=== PATIENT | female | born 1945 | race Caucasian/White ===

== ENCOUNTER → 2016-08-09 | Outpatient (REF) | payer MEDICARE ==
[~2016-08-09] MED LIST: /MUPINAS; /PRAV20TA OR; ASPI81TA31 OR; ATEN25TA OR; ATEN25TA PO; BIOT5000 PO; BUPR15TA OR; CALCCHW12 OR; CALCIUM WITH VIT D PD; CEFT500T PO; CIPROFLOXACIN AU; CLON0.5T OR; DEXAMETHASONE AU; HYDR12.55 PO; HYDR25T PO; LISI40TAB PO; LOVA20TA2 PO; MOMETASONE FUROATE AU; MULTIVIT PO; MULTIVITAMIN/MINERAL PO; NICO21DI4 TD; NORT10SO PO; NORT50CA PO; SPIR1CAP INH; TYLE167L PO; VIT D 2000 PO; VITA100037 PO; VITA100072 PO; ZEST20TA4 OR; ZYRT10TA2 PO
== END ==
LOC: M LAB REF 14:27
PROVIDERS: ATTEND Internal Medicine
DX: R19.7 Diarrhea, unspecified (principal)

== ENCOUNTER → 2017-04-20 | Outpatient (REF) | payer MEDICARE ==
[~2017-04-20] MED LIST changes: +HYDR-3363 PO; -HYDR25T PO; -VITA100037 PO; +VITA100067 PO
== END ==
LOC: M LAB REF 17:47
PROVIDERS: ATTEND Ophthalmology
DX: L72.0 Epidermal cyst (principal)

== ENCOUNTER → 2017-10-03 | Outpatient (REF) | payer MEDICARE | LOC: M LAB REF 13:29 | DX: D23.39 Other benign neoplasm of skin of other parts of face (principal) | CPT/HCPCS: 88305 ==

== ENCOUNTER → 2017-12-19 | Outpatient (CLI) | payer MEDICARE ==
[2017-12-19 14:08] LABS: COLLAGEN EPINEPHRINE 97 SECONDS (74-162)
== END ==
LOC: M LAB 13:12
DX: H02.423 Myogenic ptosis of bilateral eyelids (principal)
CPT/HCPCS: 36415

== ENCOUNTER → 2018-10-27 | Outpatient (REF) | payer MEDICARE ==
[~2018-10-27] MED LIST changes: -/MUPINAS; -/PRAV20TA OR; +BACT2OIN12; +LISI40TA52 PO; -LISI40TAB PO; +PRAV1TAB39 OR; +VITA100018 PO; -VITA100072 PO; +ZYRT10CA5 PO; -ZYRT10TA2 PO
== END ==
LOC: M LAB REF 11:04
PROVIDERS: ATTEND Physician Assistant Medical
DX: H60.8X1 Other otitis externa, right ear (principal)

== ENCOUNTER → 2018-12-29 | Outpatient (CLI) | payer MEDICARE ==
[~2018-12-29] MED LIST changes: +GASTROGRAFIN SOLUTION 30ML (Q9963) As Ordered ONE; +ISOVUE-370 76% 100ML VIAL (Q9967) As Ordered ONE
--- NOTE | 2018-12-29 14:47 | REP ---
REASON FOR EXAM: Diarrhea and weight loss. No prior contrast-enhanced examinations for comparison, however, the latest prior examination of 11/06/2013, a noncontrast-enhanced examination was reviewed. CONTRAST: 100 mL Isovue 370. There are chronic lung base changes, status quo. The liver, gallbladder, spleen, pancreas, and adrenal glands are within normal limits. Note is again made of multiple bilateral renal cysts but better imaged on this contrast-enhanced examination and most of which have increased slightly in size compared to the prior exam. No abnormal renal enhancement characteristics are present. The abdominal aorta is within normal limits for the patient's age. There is calcific atherosclerotic change, status quo. There is no periaortic adenopathy. There is no evidence of free fluid or free air in the abdomen. There is no evidence of an intra-abdominal mass or adenopathy. The intra-abdominal bowel loops and their mesenteries are within normal limits. There are a few scattered colonic diverticula. CT PELVIS: There is no evidence of a mass or adenopathy. There is no free fluid or free air. Scattered sigmoid colon diverticula are noted status quo. Bone window technique throughout the exam shows the bones to be demineralized status quo. IMPRESSION: There is no evidence of acute intra-abdominal or intrapelvic disease. There are chronic pancreatic calcifications status quo. There are bilateral renal cysts as described above. There is colonic diverticulosis as described above. Electronically Signed by Deuce Rush DO 12/29/2018 03:21 P
== END ==
LOC: M RAD 11:14
PROVIDERS: ATTEND Surgery
DX: R19.7 Diarrhea, unspecified (principal); R63.4 Abnormal weight loss; K57.90 Diverticulosis of intestine, part unspecified, without perforation or abscess without bleeding; N28.1 Cyst of kidney, acquired; K86.89 Other specified diseases of pancreas
CPT/HCPCS: 74177; Q9963; Q9967

== ENCOUNTER → 2020-02-07 | Outpatient (CLI) | payer MEDICARE ==
[~2020-02-07] MED LIST changes: -GASTROGRAFIN SOLUTION 30ML (Q9963) As Ordered ONE; -ISOVUE-370 76% 100ML VIAL (Q9967) As Ordered ONE
--- NOTE | 2020-03-04 13:47 | REP ---
CHEST X-RAY CLINICAL: COPD. Persistent cough. TECHNIQUE: PA and lateral. FINDINGS: Mediastinum and cardiac silhouette are normal. Lung rebolledo demonstrate chronic appearing interstitial changes. No consolidation, effusion, or pneumothorax. Skeletal structures are intact. IMPRESSION: No acute cardiopulmonary process or focal consolidation. MTDD
== END ==
LOC: M WUC 11:21
PROVIDERS: ATTEND Physician Assistant
DX: J44.1 Chronic obstructive pulmonary disease with (acute) exacerbation (principal)

== ENCOUNTER 2020-09-03 19:33 | Observation (INO) | payer MEDICARE ==
[~2020-09-03] VITALS: Ht 175.3 cm; Wt 66.6 kg
--- NOTE | 2020-09-03 20:28 | REPVR ---
PROCEDURE INFORMATION: Exam: XR Chest Exam date and time: 09/03/2020 8:08 PM Age: 75 years old Clinical indication: Other: Chest pain TECHNIQUE: Imaging protocol: XR of the chest Views: 1 view. COMPARISON: CR CHEST 2 VIEW 02/07/2020 11:32 AM FINDINGS: Lungs: Well inflated lungs with flattened diaphragmatic contours and increased retrosternal airspace consistent with COPD. Increased interstitial lung markings in both upper lung zones extending to the apices consistent with fibrotic change. No acute pulmonary infiltrates. Pleural spaces: Unremarkable. No pleural effusion. No pneumothorax. Heart/Mediastinum: Unremarkable. No cardiomegaly. Bones/joints: Osteoporosis. IMPRESSION: 1. COPD. 2. Increased interstitial lung markings in both upper lung zones extending to the apices consistent with fibrotic change. 3. No acute findings. Electronically signed by: Alex Herrera On 09/03/2020 20:28:06 PM
[2020-09-03 20:48] LABS: BASO % 0.5 % (0.0-1.0); EOS # 0.1 10^3/uL (0.0-0.5); EOS % 1.7 % (0.0-3.0); HEMATOCRIT 40.6 % (36.0-47.0); HEMOGLOBIN 13.2 g/dl (12.0-15.5); LYMPH # 2.6 10^3/uL (1.5-5.0); LYMPH % 30.5 % (24.0-44.0); MEAN CORPUSCULAR HEMOGLOBIN 29.5 pg (27.0-33.0); MEAN CORPUSCULAR HGB CONC 32.5 g/dl (32.0-36.5); MEAN CORPUSCULAR VOLUME 90.8 fl (80.0-96.0); MONO # 0.7 10^3/uL (0.0-0.8); MONO % 8.6 % (2.0-8.0); NEUTROPHILS # 4.9 10^3/uL (1.5-8.5); NEUTROPHILS % 58.3 % (36.0-66.0); PLATELET COUNT, AUTOMATED 257 10^3/uL (150-450); RED BLOOD COUNT 4.47 10^6/uL (4.00-5.40); WHITE BLOOD COUNT 8.5 10^3/uL (4.0-10.0)
--- NOTE | 2020-09-03 21:04 | ECGEPIP ---
[facility] - ED Test Date: 2020-09-03 Pat Name: CHANDLER PEREZ Department: Room: - Gender: Female Internet Webmaster: YESENIA : 1945 Requested By: Nicole De León Order Number: [id number] Reading MD: Oleg Amaro Measurements Intervals [place] Rate: 86 P: 55 KS: 186 QRS: 63 QRSD: 94 T: 43 QT: 392 QTc: 469 Interpretive Statements Normal sinus rhythm Possible Left atrial enlargement Left ventricular hypertrophy with repolarization abnormality ( Sokolow-Landon ) SIMILAR TO 08/06/14 Electronically Signed on 09-03-2020 21:04:11 EDT by Oleg Amaro
[2020-09-03 21:25] LABS: ALBUMIN 3.9 GM/DL (3.2-5.2); ALT/SGPT 17 U/L (12-78); BILIRUBIN,DIRECT 0.1 MG/DL (0.0-0.2); BILIRUBIN,TOTAL 0.2 MG/DL (0.2-1.0); BLOOD UREA NITROGEN 20 MG/DL (7-18); CALCIUM LEVEL 9.7 MG/DL (8.8-10.2); CARBON DIOXIDE LEVEL 32 MEQ/L (21-32); CHLORIDE LEVEL 104 MEQ/L (98-107); CK-MB VALUE MASS 1.4 NG/ML (<3.6); CPK CREATINE PHOSPHOKINASE 69 U/L (26-192); CREATININE FOR GFR 1.21 MG/DL (0.55-1.30); GLOMERULAR FILTRATION RATE 46.3 (>39); GLUCOSE, FASTING 119 MG/DL (70-100); MB/CK RELATIVE INDEX 2.03 (< OR =4); POTASSIUM SERUM 3.6 MEQ/L (3.5-5.1); SODIUM LEVEL 142 MEQ/L (136-145); THYROID STIMULATING HORMONE 0.966 uIU/ML (0.358-3.740); TROPONIN I < 0.02 NG/ML (< 0.10)
[2020-09-03] MEDS: LABETALOL 100MG/20ML VIAL IV PRN ×2 (21:46→22:14)
[2020-09-03] MEDS ORDERED: ZINC1TAB2 PO (22:04)
[2020-09-03] MEDS ORDERED: LISI20TA33 PO (22:04)
[2020-09-03] MEDS ORDERED: ATEN50TA2 PO (22:04)
[2020-09-03] MEDS ORDERED: KP F1200 PO (22:04)
[2020-09-03] MEDS ORDERED: TURM500C PO (22:04)
[2020-09-03] MEDS ORDERED: VALSARTAN 80 MG TAB (DIOVAN) PO ONE (23:25)
[2020-09-04] VITALS (16 sets, daily range): BP systolic 119–185; BP diastolic 57–78
[2020-09-04] MEDS ORDERED: **hydrALAZINE HCL** 25 MG TAB PO ONE (01:00)
[2020-09-04] MEDS ORDERED: hydrALAZINE 20MG/ML 1ML VIAL (J0360 PER 20MG) IV ONE (01:55)
[2020-09-04] MEDS ORDERED: VITMTA PO (02:23)
[2020-09-04] MEDS ORDERED: RA T500C2 PO (02:23)
[2020-09-04] MEDS ORDERED: FISH1000 PO (02:23)
[2020-09-04] MEDS ORDERED: ZINC50TA26 PO (02:23)
[2020-09-04] MEDS ORDERED: D31000TA2 PO (02:23)
[2020-09-04] MEDS ORDERED: CALCTAB50 PO (02:23)
[2020-09-04] MEDS ORDERED: MOM 30ML SUSPENSION UDC PO PRN (03:05)
[2020-09-04] MEDS ORDERED: MAALOX 30 ML SUSP *UDC PO PRN (03:05)
[2020-09-04] MEDS: NORTRIPTYLINE 25 MG CAP PO SCH ×2 (03:15→20:58)
--- NOTE | 2020-09-04 03:36 | HPEPDOC ---
[facility] Medical History & Physical Date of Admission Sep 04, 2020 Date of Service: Sep 04, 2020 History and Physical CHIEF COMPLAINT: dizziness HISTORY OF PRESENT ILLNESS: 75 yo F with a hx of HTN, and migraines presented to ER from urgent care, after he systolic blood pressure was found to be > 220 mmHg. Patient has been feeling dizzy for the past 2 days, without chest pain, palpitations, seizures, blurred vision. She was given labetalol IV in the ER without improvement. Dr. Bradford was called, recommended valsartan and hydralazine. Patients SBP remains > 200 at time of exam. Will be admitted to ICU with a labetalol drip to reduce BP by 20%. 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 REVIEW OF SYSTEMS: 10 point ROS was conducted, relevant findings are in HPI HOME MEDICATIONS: Please see below. PHYSICAL EXAMINATION: VITAL SIGNS: please see below General: NAD, comfortable HEENT: PERRLA, EOMI, sclerae clear Neck: supple, normal ROM, no JVD Respiratory: lungs CTAB, no wheeze, no rales, no crackles CVS: RRR, normal S1, S2, no murmurs Abdo: soft, no masses, no hepatosplenomegaly, BS+, no rebound tenderness Extremities: no edema, pulses 2+ MSK: no joint deformities, normal ROM Neuro: no focal neuro deficits, moving all 4 extremities, CN2-12 intact. Strength 5/5 in all 4 extremities. No nystagmus. Psych: calm, cooperative, AAO x 3 LABORATORY DATA: See below. IMAGING: CXR (09/03/20) 1. COPD. 2. Increased interstitial lung markings in both upper lung zones extending to the apices consistent with fibrotic change. 3. No acute findings. MICROBIOLOGY: Please see below. ASSESSMENT: 75 yo F with a hx of HTN, and migraines presented to ER from urgent care, after he systolic blood pressure was found to be > 220 mmHg. Will be admitted to ICU with labetalol drip to achieve BP control. . PLAN: HTN urgency - SBP > 220 - refractory to IV labetalol pushes, ARB and hydralazine - admit to ICU - Labetalol drip 0.5 mg/min - goal SBP 180 mmHg - home meds: atenolol 50 mg daily and lisinopril 20 mg daily; resumed to start once off drip - check serum metanephrines, catecholamines, renin/aldosterone ratio - check renal US with dopplers - check 2D echo Migraines - resume nortriptyline COPD: - stable, does not take inhalers - albuterol DVT ppx: lovenox, SCDs. Dispo: pending clinical improvement. Vital Signs Vital Signs Date Time Temp Pulse Resp B/P (MAP) Pulse Ox O2 Delivery O2 Flow Rate FiO2 09/04/20 02:30 82 212/90 (130) 97 09/04/20 01:17 18 Room Air 09/03/20 19:36 98.4 Laboratory Data Labs 24H Laboratory Tests 2 09/03/20 20:24: Immature Granulocyte % (Auto) 0.4, Neutrophils (%) (Auto) 58.3, Lymphocytes (%) (Auto) 30.5, Monocytes (%) (Auto) 8.6H, Eosinophils (%) (Auto) 1.7, Basophils (%) (Auto) 0.5, Neutrophils # (Auto) 4.9, Lymphocytes # (Auto) 2.6, Monocytes # (Auto) 0.7, Eosinophils # (Auto) 0.1, Basophils # (Auto) 0.0, Nucleated Red Blood Cells % (auto) 0.0, Anion Gap 6L, Glomerular Filtration Rate 46.3, Calcium Level 9.7, Total Bilirubin 0.2, Direct Bilirubin 0.1, Aspartate Amino Transf (AST/SGOT) 20, Alanine Aminotransferase (ALT/SGPT) 17, Alkaline Phosphatase 113, Total Creatine Kinase 69, Creatine Kinase MB 1.4, Creatine Kinase MB Relative Index 2.03, Troponin I < 0.02, Total Protein 7.0, Albumin 3.9, Albumin/Globulin Ratio 1.3, Thyroid Stimulating Hormone (TSH) 0.966 09/03/20 20:35: Urine Color STRAW, Urine Appearance CLEAR, Urine pH 8.0, Urine Specific [place] 1.008, Urine Protein 2+H, Urine Glucose (UA) NEGATIVE, Urine Ketones NEGATIVE, Urine Blood 2+H, Urine Nitrite NEGATIVE, Urine Bilirubin NEGATIVE, Urine Urobilinogen 0.2, Urine Leukocyte Esterase NEGATIVE, Urine WBC (Auto) 2, Urine RBC (Auto) 22H, Urine Hyaline Casts (Auto) 0, Urine Bacteria (Auto) NEGATIVE, U rine Squamous Epithelial Cells 0, Urine Mucus (Auto) SMALL, Urine Sperm (Auto) CBC/BMP Laboratory Tests 09/03/20 20:24 Microbiology Microbiology 09/04/20 Respiratory Virus Panel (PCR) ([facility]), Received Pending Home Medications Scheduled Atenolol (Atenolol) 50 Mg Tablet, 50 MG PO DAILY Biotin (Biotin) 5,000 Mcg Cap, 10,000 MCG PO DAILY Calcium Carbonate/Vitamin D3 (Calcium 600-Vit D3 200 Tablet) 1 Each Tablet, 1 TAB PO DAILY Cholecalciferol (Vitamin D3) (Vitamin D3) 1,000 Unit Tablet, 2,000 UNITS PO DAILY Lisinopril (Lisinopril) 20 Mg Tablet, 20 MG PO DAILY Lovastatin (Lovastatin) 20 Mg Tab, 20 MG PO DAILY Multivitamins (Thera M Plus Tablet) 1 Each Tablet, 1 TAB PO DAILY Nortriptyline HCl (Nortriptyline HCl) 50 Mg Cap, 50 MG PO QHS [place]-3 Fatty Acids/Fish Oil (Fish Oil 1,000 mg Capsule) 1 Each Capsule, 1,000 MG PO DAILY Turmeric Root Extract (Turmeric) 500 Mg Capsule, 500 MG PO DAILY Zinc Gluconate (Zinc) 50 Mg Tablet, 50 MG PO DAILY Allergies Coded Allergies: codeine (Unverified Allergy, Unknown, 09/03/20) morphine (Unverified Allergy, Unknown, 09/03/20) A-FIB/CHADSVASC A-FIB History Current/History of A-Fib/PAF?: No Current PO Anticoag Therapy: No CORINE MCDOWELL MD Sep 04, 2020 03:36
[2020-09-04] MEDS ORDERED: LABETALOL HCL 200 MG in D5W 160 ML IV SCH (04:00)
[2020-09-04 07:50] LABS: BASO % 0.5 % (0.0-1.0); EOS # 0.1 10^3/uL (0.0-0.5); EOS % 1.4 % (0.0-3.0); HEMATOCRIT 35.5 % (36.0-47.0); HEMOGLOBIN 11.7 g/dl (12.0-15.5); LYMPH % 24.4 % (24.0-44.0); MEAN CORPUSCULAR HEMOGLOBIN 29.6 pg (27.0-33.0); MEAN CORPUSCULAR VOLUME 89.9 fl (80.0-96.0); MONO # 0.6 10^3/uL (0.0-0.8); MONO % 7.8 % (2.0-8.0); NEUTROPHILS # 5.3 10^3/uL (1.5-8.5); NEUTROPHILS % 65.8 % (36.0-66.0); PLATELET COUNT, AUTOMATED 238 10^3/uL (150-450); RED BLOOD COUNT 3.95 10^6/uL (4.00-5.40); WHITE BLOOD COUNT 8.1 10^3/uL (4.0-10.0)
[2020-09-04 08:13] LABS: ALBUMIN 3.4 GM/DL (3.2-5.2); BILIRUBIN,TOTAL 0.3 MG/DL (0.2-1.0); CALCIUM LEVEL 8.8 MG/DL (8.8-10.2); CREATININE FOR GFR 1.11 MG/DL (0.55-1.30); GLOMERULAR FILTRATION RATE 51.2 (>39); MAGNESIUM LEVEL 1.8 MG/DL (1.8-2.4); POTASSIUM SERUM 3.6 MEQ/L (3.5-5.1)
--- NOTE | 2020-09-04 08:51 | REP ---
INDICATION: hypertensive urgency, r/o renal artery stenosis COMPARISON: None TECHNIQUE: Real time riley scale ultrasound examination using curved array transducer followed by color Doppler evaluation of the renal vasculature. FINDINGS: The kidneys are relatively normal in reniform shape with increased central sinus fat and multiple scattered cysts (largest of which noted below). No hydronephrosis. Right kidney measures 9.6 x 4.7 x 5.0 cm with the largest midpole cortical cyst measuring 2.3 cm diameter. Left kidney measures 10.1 x 4.5 x 5.1 cm with 3.1 cm lower pole and 2.9 cm cortical midpole cyst. Bladder is unremarkable. Peak aortic velocity: 56.0 centimeters/second RIGHT KIDNEY Renal arterial velocity: 87.6 centimeters/second Renal-aortic ratio: 1.6 Intrarenal resistive indices: 0.80-0.84 Intrarenal acceleration times: 0.022-0.025 LEFT KIDNEY Renal arterial velocity: 61 centimeters/second Renal-aortic ratio: 1.1 Intrarenal resistive indices: 0.78-0.83 Intrarenal acceleration times: 0.020-0.022 IMPRESSION: 1. Kidneys demonstrate chronic age-related changes and multiple bilateral simple and complex cysts. 2. Doppler interegation without sonographic evidence for renal arterial stenosis. <Electronically signed by Jewel Sanchez > 09/04/20 0844
[2020-09-04] MEDS: ENOXAPARIN 40MG/0.4ML SYRINGE (J1650 PER 10MG) SC SCH (09:17)
[2020-09-04] MEDS: ACETAMINOPHEN TAB 650MG DOSE (2X325MG) PO PRN ×3 (09:18→18:35)
[2020-09-04] MEDS: atenoloL 50 MG TAB PO SCH (09:19)
[2020-09-04] MEDS: SIMVASTATIN 20 MG TAB PO SCH (09:20)
[2020-09-04] MEDS: VITAMIN D 1,000 INTERNATIONAL UNITS TABLET PO SCH (09:20)
[2020-09-04] MEDS: MULTIVITAMINS/MINERALS THERAP 1 TAB PO SCH (09:20)
[2020-09-04] MEDS: CALCIUM/VITAMIN D 500 MG TAB PO SCH (09:20)
[2020-09-04] MEDS: DOCUSATE SODIUM 100MG CAPSULE PO SCH ×2 (09:20→20:26)
[2020-09-04] MEDS ORDERED: PREVNAR 13 VACCINE SYRINGE IM SCH (14:35)
--- NOTE | 2020-09-04 16:36 | IPNPDOC ---
Text Note Date of Service The patient was seen on 09/04/20. NOTE Subjective: Patient stated that she feels better today. Her blood pressure under control. Labetalol drip was stopped Objective: GENERAL APPEARANCE: NAD HEENT: no scleral icterus, no JVD, EOMI CARDIOVASCULAR: S1S2 LUNGS: CTA ABDOMEN: soft & not tender w palpitation MUSCULOSKELETAL: no cyanosis, no swelling INTEGUMENT: no generalized pallor NEUROLOGICAL: cranial nerve function from 2-12 intact intact, follows commands, speech not dysarthric Assessment and plan Patient is 75 years old female with past medical history of hypertension, migraines presented to the hospital with hypertensive emergency Hypertensive emergency Patient developed refractory blood pressure to IRP and hydralazine Patient was placed on the labetalol ggt with positive effect In the morning pressure was stabilized I increased the home dose of lisinopril to 40 mg Kidney ultrasound showed Kidneys demonstrate chronic age-related changes and multiple bilateral simple and complex cysts. 2. Doppler interegation without sonographic evidence for renal arterial stenosis Await echo Migraines Continue nortriptyline COPD Not in acute exacerbation Continue home inhalers Smoking abuse Counseling VS,Adams, I+O VS, Adams, I+O Laboratory Tests 09/03/20 20:24 09/04/20 07:29 Vital Signs Date Time Temp Pulse Resp B/P (MAP) Pulse Ox O2 Delivery O2 Flow Rate FiO2 09/04/20 12:14 68 148/66 (93) 09/04/20 12:00 98.5 18 97 Room Air I&O- Last 24 Hours up to 6 AM 09/04/20 06:00 Intake Total 30 ml Output Total 0 ml Balance 30 ml LUIS ALBERTO DE LEON DO Sep 04, 2020 16:36
[2020-09-05] VITALS: BP 150/67
[2020-09-05 04:00] VITALS: BP 144/69
[2020-09-05 08:00] VITALS: BP 132/62
[2020-09-05] MEDS: VITAMIN D 1,000 INTERNATIONAL UNITS TABLET PO SCH (09:14)
[2020-09-05 09:15] VITALS: BP 132/62
[2020-09-05] MEDS: CALCIUM/VITAMIN D 500 MG TAB PO SCH (09:15)
[2020-09-05] MEDS: SIMVASTATIN 20 MG TAB PO SCH (09:15)
[2020-09-05] MEDS: atenoloL 50 MG TAB PO SCH (09:15)
[2020-09-05] MEDS: ENOXAPARIN 40MG/0.4ML SYRINGE (J1650 PER 10MG) SC SCH (09:16)
[2020-09-05] MEDS: MULTIVITAMINS/MINERALS THERAP 1 TAB PO SCH (09:16)
[2020-09-05] MEDS: DOCUSATE SODIUM 100MG CAPSULE PO SCH (09:16)
[2020-09-05] MEDS ORDERED: SLF 3 ML SYR IV PRN (11:00)
[2020-09-05] MEDS ORDERED: LISI40TA4 PO (11:14)
[2020-09-05] MEDS ORDERED: AMLO1TAB25 PO (11:14)
[2020-09-05] MEDS ORDERED: ATOR1TAB21 PO (11:14)
[2020-09-05] MEDS ORDERED: DOK1CAP7 PO (11:14)
[2020-09-05 12:00] VITALS: BP 148/82
[2020-09-05] MEDS ORDERED: SLF 3 ML SYR IV SCH (14:00)
--- NOTE | 2020-09-05 16:56 | DS.PDOC ---
Discharge Summary General Date of Admission Sep 03, 2020 at 19:34 Date of Discharge 09/05/20 Discharge Summary PROCEDURES PERFORMED DURING STAY: [None]. ADMITTING DIAGNOSES: Hypertensive emergency/hypertension Migraines COPD Smoking abuse DISCHARGE DIAGNOSES: Hypertensive emergency/hypertension Migraines COPD Smoking abuse COMPLICATIONS/CHIEF COMPLAINT: Hypertensive Urgency. HISTORY OF PRESENT ILLNESS: 75 yo F with a hx of HTN, and migraines presented to ER from urgent care, after he systolic blood pressure was found to be > 220 mmHg. Patient has been feeling dizzy for the past 2 days, without chest pain, palpitations, seizures, blurred vision. She was given labetalol IV in the ER without improvement. Dr. Bradford was called, recommended valsartan and hydralazine. Patients SBP remains > 200 at time of exam HOSPITAL COURSE: During the hospital stay the following issues addressed Hypertensive emergency Patient developed refractory blood pressure to IRB and hydralazine Patient was placed on the labetalol ggt with positive effect after that blood pressure was stabilized I increased the home dose of lisinopril to 40 mg Kidney ultrasound showed Kidneys demonstrate chronic age-related changes and multiple bilateral simple and complex cysts. 2. Doppler interegation without sonographic evidence for renal arterial stenosis Await echo report Migraines Continue nortriptyline COPD Not in acute exacerbation Continue home inhalers Smoking abuse Counseling DISCHARGE MEDICATIONS: Please see below. ALLERGIES: Please see below. PHYSICAL EXAMINATION ON DISCHARGE: VITAL SIGNS: Please see below. GENERAL APPEARANCE: NAD HEENT: no scleral icterus, no JVD, EOMI CARDIOVASCULAR: S1S2 LUNGS: CTA ABDOMEN: soft & not tender w palpitation MUSCULOSKELETAL: no cyanosis, no swelling INTEGUMENT: no generalized pallor NEUROLOGICAL: cranial nerve function from 2-12 intact intact, follows commands, speech not dysarthric LABORATORY DATA: Please see below. IMAGING: See above PROGNOSIS: Fair ACTIVITY: [As tolerated]. DIET: Cardiac DISPOSITION: 01 Home, Self-Care. ITEMS TO FOLLOWUP ON ON OUTPATIENT: Follow-up with special education professor in 3-5 days and PCP DISCHARGE CONDITION: [Stable]. TIME SPENT ON DISCHARGE: 30minutes. Vital Signs/I&Os Vital Signs Date Time Temp Pulse Resp B/P (MAP) Pulse Ox O2 Delivery O2 Flow Rate FiO2 09/05/20 12:00 97.8 75 18 148/82 (104) 96 Room Air I&O- Last 24 Hours up to 6 AM 09/05/20 06:00 Intake Total 480 ml Output Total 100 ml Balance 380 ml Microbiology Microbiology 09/04/20 Respiratory Virus Panel (PCR) ([facility]) - Final, Complete Discharge Medications Scheduled Amlodipine Besylate (Amlodipine Besylate) 10 Mg Tablet, 10 MG PO DAILY Atenolol (Atenolol) 50 Mg Tablet, 50 MG PO DAILY, (Reported) Atorvastatin Calcium (Atorvastatin Calcium) 20 Mg Tablet, 20 MG PO DAILY Biotin (Biotin) 5,000 Mcg Cap, 10,000 MCG PO DAILY, (Reported) Calcium Carbonate/Vitamin D3 (Calcium 600-Vit D3 200 Tablet) 1 Each Tablet, 1 TAB PO DAILY, (Reported) Cholecalciferol (Vitamin D3) (Vitamin D3) 1,000 Unit Tablet, 2,000 UNITS PO D AILY, (Reported) Lisinopril (Lisinopril) 40 Mg Tablet, 1 TAB PO DAILY Multivitamins (Thera M Plus Tablet) 1 Each Tablet, 1 TAB PO DAILY, (Reported) Nortriptyline HCl (Nortriptyline HCl) 50 Mg Cap, 50 MG PO QHS, (Reported) [place]-3 Fatty Acids/Fish Oil (Fish Oil 1,000 mg Capsule) 1 Each Capsule, 1,000 MG PO DAILY, (Reported) Turmeric Root Extract (Turmeric) 500 Mg Capsule, 500 MG PO DAILY, (Reported) Zinc Gluconate (Zinc) 50 Mg Tablet, 50 MG PO DAILY, (Reported) Scheduled PRN Docusate Sodium (Dok) 100 Mg Capsule, 100 MG PO BID PRN for constipation Allergies Coded Allergies: codeine (Unverified Allergy, Unknown, 09/03/20) morphine (Unverified Allergy, Unknown, 09/03/20) LUIS ALBERTO DE LEON DO Sep 05, 2020 16:56
== END 2020-09-05 14:15 | disposition home or self-care (01) ==
LOC: M ED 19:33 → M ED INP 19:34 → M ICU 09-04 05:10 → M PCU 09-04 18:36
PROVIDERS: ADMIT Family Medicine; ATTEND Family Medicine
DX: I16.0 Hypertensive urgency (principal); I10 Essential (primary) hypertension; G43.909 Migraine, unspecified, not intractable, without status migrainosus; J44.9 Chronic obstructive pulmonary disease, unspecified; F17.218 Nicotine dependence, cigarettes, with other nicotine-induced disorders; Z79.899 Other long term (current) drug therapy; Z88.5 Allergy status to narcotic agent
CPT/HCPCS: 36415; 71045; 76775; 80048; 80053; 80076; 81001; 82088; 82383; 82550; 82553; 83735; 83835; 84244; 84443; 84484; 84585; 85025; 87641; 87798; 93005; 93041; 93975; 94760; 96372; 96374; 96375; 96376; 99285; G0378; J0360; J1650

== ENCOUNTER → 2020-09-15 | Outpatient (CLI) | payer MEDICARE ==
[~2020-09-15] MED LIST changes: +AMLO1TAB25 PO; +ATEN50TA2 PO; +ATOR1TAB21 PO; +CALCTAB50 PO; +D31000TA2 PO; +DOK1CAP7 PO; +FISH1000 PO; +KP F1200 PO; +LISI20TA33 PO; +LISI40TA4 PO; +RA T500C2 PO; +TURM500C PO; +VITMTA PO; +ZINC1TAB2 PO; +ZINC50TA26 PO
--- NOTE | 2020-09-15 16:24 | REPMRS ---
Patient History The patient states she has not had a clinical breast exam in over a year. Patient is postmenopausal. No known family history of cancer. Benign radio exam breast specimen of the right breast, November 13, 2014. Benign stereotatic loc for ea lesion of the right breast, November 13, 2014. 3D TOMOSYNTHESIS WAS PERFORMED. [facility] lifetime risk for breast cancer is 2.8%. Volpara breast density b. Digital Woman Screen Mammo: September 15, 2020 - Exam #: [id number] Bilateral CC and MLO view(s) were taken. Technologist: Tere Bourgeois, Technologist Prior study comparison: October 23, 2018, left breast diagnostic unilateral mammo, performed at [facility]. April 04, 2018, bilateral digital mammo screening bilat, performed at [facility]. FINDINGS: There are scattered fibroglandular densities. There has been no change in the appearance of the mammogram from the prior studies. There is a mild amount of residual fibroglandular tissue which is fairly symmetric. There is no interval development of dominant mass, architectural distortion, or clustered microcalcification suggestive of malignancy. Assessment: BI-RADS/ACR category 1 mammogram. Negative Mammogram. Recommendation Routine screening mammogram in 1 year (for women over age 40). This mammogram was interpreted with the aid of an FDA-approved computer-aided dectection system. Electronically Signed By: Tyson Bazzi MD 09/15/20 0326
--- NOTE | 2020-09-15 16:38 | DEXAMM ---
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 COMPARISON: 09/12/2017 and 08/13/2013. TECHNIQUE: Bone density was measured using dual-energy x-ray absorptiometry (DEXA). FINDINGS: AP SPINE L1-L4 BMD 0.954 g/cm2 Young Adult T-Score -1.9 Age Matched Z-Score -0.2. LT FEMUR, TOTAL BMD 0.815 g/cm2 Young Adult T-Score -1.5 Age Matched Z-Score 0.2. LT NECK BMD 0.827 g/cm2 Young Adult T-Score -1.5 Age Matched Z-Score 0.4. RT FEMUR, TOTAL BMD 0.777 g/cm2 Young Adult T-Score -1.8 Age Matched Z-Score -0.2. RT NECK BMD 0.792 g/cm2 Young Adult T-Score -1.8 Age Matched Z-Score 0.1. IMPRESSION: There is low bone density of the spine. There is low bone density of the left hip. There is low bone density of the right hip. The density of the spine has decreased 4.6% since the initial exam on 08/13/2013. The density of the spine decreased 4.6% since most recent exam on 09/12/2017. The density of the left hip has decreased 9.9% since initial exam on 08/13/2013. The density of the left hip has decreased 0.9% since most recent exam on 09/12/2017. The density of the right hip has decreased 14.0% since the initial exam on 08/13/2013. The density of the right hip has decreased 1.8% since the most recent exam on 09/12/2017. FOLLOW-UP: Recommendation for the next bone density exam: 2 years. <Electronically signed by Tyson Bazzi > 09/15/20 [id number]
== END ==
LOC: M WHC 14:32
PROVIDERS: ATTEND Internal Medicine
DX: Z12.31 Encounter for screening mammogram for malignant neoplasm of breast (principal); M89.29 Other disorders of bone development and growth, multiple sites; M81.0 Age-related osteoporosis without current pathological fracture

== ENCOUNTER → 2020-11-06 | Outpatient (CLI) | payer MEDICARE ==
--- NOTE | 2020-11-06 12:40 | REP ---
INDICATION: STENOSIS COMPARISON: None. TECHNIQUE: Bazzi scale and color Doppler evaluation using linear high frequency transducer Findings: FINDINGS: Two-dimensional bazzi scale and color images demonstrate moderate amount of bilateral mixed atheromatous plaquing with laminar flow and no appreciable narrowing. Color Doppler interrogation demonstrates normal arterial wave patterns and velocities with no significant spectral broadening. Normal flow direction is appreciated in the bilateral vertebral arteries. ICA peak systolic velocity: Right 124 cm/s; Left 162 cm/s ICA diastolic velocity: Right 30.2 cm/s; Left 32.1 cm/s ECA peak systolic velocity: Right 133 cm/s; Left 164 cm/s CCA peak systolic velocity: Right 122 cm/s; Left 98.8 cm/s ICA/CCA ratio: Right 1.02 cm/s; Left 1.64 cm/s IMPRESSION: 1. Elevated velocity to the left carotid artery possibly reflecting area of stenosis in the 50-69% range <Electronically signed by Jewel Sanchez > 11/06/20 [id number]
== END ==
LOC: M RAD 11:55
PROVIDERS: ATTEND Internal Medicine Cardiovascular Disease
DX: R09.89 Other specified symptoms and signs involving the circulatory and respiratory systems (principal); I65.29 Occlusion and stenosis of unspecified carotid artery

== ENCOUNTER → 2020-11-10 | Outpatient (CLI) | payer MEDICARE ==
[2020-11-10 18:12] LABS: ALBUMIN 3.7 GM/DL (3.2-5.2); CALCIUM LEVEL 9.8 MG/DL (8.8-10.2); CREATININE FOR GFR 1.7 MG/DL (0.55-1.30); GLOMERULAR FILTRATION RATE 31.3 (>39); PHOSPHORUS LEVEL 3.4 MG/DL (2.5-4.9); POTASSIUM SERUM 4.4 MEQ/L (3.5-5.1)
== END ==
LOC: M WUC 10:25
PROVIDERS: ATTEND Internal Medicine Cardiovascular Disease
DX: I11.9 Hypertensive heart disease without heart failure (principal)

== ENCOUNTER → 2021-01-19 | Outpatient (REF) | payer MEDICARE ==
[~2021-01-19] MED LIST changes: +DOK1CAP4 PO; -DOK1CAP7 PO
[2021-01-19 17:10] LABS: ALBUMIN 3.6 GM/DL (3.2-5.2); CALCIUM LEVEL 8.8 MG/DL (8.8-10.2); CREATININE FOR GFR 1.31 MG/DL (0.55-1.30); GLOMERULAR FILTRATION RATE 42.3 (>39); PHOSPHORUS LEVEL 3.7 MG/DL (2.5-4.9); POTASSIUM SERUM 3.9 MEQ/L (3.5-5.1)
== END ==
LOC: M PLALAB 15:33
PROVIDERS: ATTEND Physician Assistant
DX: I11.9 Hypertensive heart disease without heart failure (principal)

== ENCOUNTER → 2021-04-06 | Outpatient (CLI) | payer MEDICARE ==
--- NOTE | 2021-04-06 11:58 | REP ---
INDICATION: RENAL CYST. COMPARISON: 09/04/2020 which showed multiple cysts and likely age-related changes. Prior CT 12/29/2018 showed multiple renal cysts. TECHNIQUE: Real-time sonographic evaluation of the kidneys with Doppler FINDINGS: Multiple ultrasonographic images of the right kidney show the right kidney to measure 9.3 x 6.2 x 4.9 cm. The renal cortical echotexture is diffusely increased. There are no solid masses. There are multiple cysts status quo. There is suboptimal corticomedullary differentiation. There is no hydronephrosis. There are no perinephric fluid collections. Multiple ultrasonographic images of the left kidney show the left kidney to measure 10.5 x 5.3 x 4.9 cm. The renal cortical echotexture is diffusely increased. There are no solid masses. Are multiple cysts status quo. There is suboptimal corticomedullary differentiation. There is no hydronephrosis. There are no perinephric fluid collections. IMPRESSION: No significant change from the prior exam. There are multiple cysts. There is evidence of age-related change. Medical renal disease cannot be ruled. <Electronically signed by Deuce Rush > 04/06/21 [id number]
== END ==
LOC: M RAD 11:10
PROVIDERS: ATTEND Internal Medicine
DX: N28.1 Cyst of kidney, acquired (principal)

== ENCOUNTER → 2021-08-25 | Outpatient (REF) | payer MEDICARE ==
[~2021-08-25] MED LIST changes: -D31000TA2 PO; +VITA100093 PO
== END ==
LOC: M LAB REF 16:19
PROVIDERS: ATTEND Internal Medicine
DX: N18.30 Chronic kidney disease, stage 3 unspecified (principal)

== ENCOUNTER → 2021-10-07 | Outpatient (CLI) | payer MEDICARE | LOC: M WHC 14:08 | PROVIDERS: ATTEND Internal Medicine | DX: Z12.31 Encounter for screening mammogram for malignant neoplasm of breast (principal) ==

== ENCOUNTER 2021-11-07 22:56 | Emergency (ER) | payer MEDICARE ==
[~2021-11-07] VITALS: Ht 177.8 cm; Wt 63.6 kg
[2021-11-08] MEDS ORDERED: hydrALAZINE 20MG/ML 1ML VIAL (J0360 PER 20MG) IV STA (00:38)
[2021-11-08] MEDS ORDERED: **hydrALAZINE HCL** 25 MG TAB PO ONE (01:35)
[2021-11-08 01:49] VITALS: BP 220/60
[2021-11-08 02:28] VITALS: BP 183/76
== END 2021-11-08 03:10 | disposition left against medical advice (07) ==
LOC: M ED 22:56
DX: I16.0 Hypertensive urgency (principal); Z04.3 Encounter for examination and observation following other accident; W01.0XXA Fall on same level from slipping, tripping and stumbling without subsequent striking against object, initial encounter; Y92.410 Unspecified street and highway as the place of occurrence of the external cause; Y93.9 Activity, unspecified; Y99.9 Unspecified external cause status; Z53.9 Procedure and treatment not carried out, unspecified reason; Z79.899 Other long term (current) drug therapy

== ENCOUNTER → 2021-11-16 | Outpatient (CLI) | payer MEDICARE | LOC: M WUC 15:20 | PROVIDERS: ATTEND Physician Assistant | DX: M79.605 Pain in left leg (principal) ==

== ENCOUNTER → 2022-09-14 | Outpatient (CLI) | payer MEDICARE | LOC: M RAD 12:06 | PROVIDERS: ATTEND Internal Medicine | DX: Z87.891 Personal history of nicotine dependence (principal) ==

== ENCOUNTER → 2022-10-08 | Outpatient (CLI) | payer MEDICARE | LOC: M WHC 10:56 | PROVIDERS: ATTEND Internal Medicine | DX: Z12.31 Encounter for screening mammogram for malignant neoplasm of breast (principal) ==

== ENCOUNTER → 2023-11-24 | Outpatient (CLI) | payer MEDICARE, MEDICAID | LOC: M WHC 13:11 | PROVIDERS: ATTEND Internal Medicine | DX: Z12.31 Encounter for screening mammogram for malignant neoplasm of breast (principal) ==

== ENCOUNTER → 2023-12-20 | Outpatient (CLI) | payer MEDICARE, MEDICAID | LOC: M WHC 10:02 | PROVIDERS: ATTEND Internal Medicine | DX: R92.2 Inconclusive mammogram (principal) | CPT/HCPCS: 76642; 77065; G0279 ==

== ENCOUNTER → 2024-02-27 | Outpatient (REF) | payer MEDICARE, MEDICAID ==
[2024-02-27 19:19] LABS: FOLATE > 24.0 NG/ML (>5.4); VITAMIN B12 LEVEL 838 PG/ML (211-911)
== END ==
LOC: M LAB REF 16:31
PROVIDERS: ATTEND Internal Medicine
DX: F03.90 Unspecified dementia, unspecified severity, without behavioral disturbance, psychotic disturbance, mood disturbance, and anxiety (principal)

== ENCOUNTER → 2024-02-28 | Outpatient (CLI) | payer MEDICARE, MEDICAID | LOC: M RAD 12:43 | PROVIDERS: ATTEND Internal Medicine | DX: Z87.891 Personal history of nicotine dependence (principal) ==

== ENCOUNTER → 2024-03-21 | Outpatient (CLI) | payer MEDICARE, MEDICAID | LOC: M RAD 14:12 | PROVIDERS: ATTEND Internal Medicine | DX: I65.23 Occlusion and stenosis of bilateral carotid arteries (principal); I73.9 Peripheral vascular disease, unspecified ==

== ENCOUNTER 2024-07-22 14:29 | Emergency (ER) | payer MEDICARE, MEDICAID ==
[~2024-07-22] VITALS: Ht 177.8 cm; Wt 59.4 kg
[2024-07-22 15:26] LABS: BASO # 0.1 10^3/uL (0.0-0.2); BASO % 0.7 % (0.0-1.0); EOS # 0.1 10^3/uL (0.0-0.5); EOS % 1.3 % (0.0-3.0); HEMATOCRIT 38.5 % (36.0-47.0); HEMOGLOBIN 12.4 g/dl (12.0-15.5); LYMPH # 2.2 10^3/uL (1.5-5.0); LYMPH % 25.6 % (24.0-44.0); MEAN CORPUSCULAR HGB CONC 32.2 g/dl (32.0-36.5); MEAN CORPUSCULAR VOLUME 93.2 fl (80.0-96.0); MONO # 0.8 10^3/uL (0.0-0.8); MONO % 8.9 % (2.0-8.0); NEUTROPHILS # 5.5 10^3/uL (1.5-8.5); NEUTROPHILS % 63.2 % (36.0-66.0); PLATELET COUNT, AUTOMATED 295 10^3/uL (150-450); RED BLOOD COUNT 4.13 10^6/uL (4.00-5.40); WHITE BLOOD COUNT 8.6 10^3/uL (4.0-10.0)
[2024-07-22 15:52] LABS: LIPASE 56 U/L (12-53)
[2024-07-22 16:00] LABS: CPK CREATINE PHOSPHOKINASE 53 U/L (34-145)
[2024-07-22 16:08] LABS: ALBUMIN 3.6 G/DL (3.2-5.2); ALKALINE PHOSPHATASE 99 U/L (35-104); ALT/SGPT 17 U/L (7.0-40); AST/SGOT 19 U/L (<34); BILIRUBIN,DIRECT < 0.1 MG/DL (<0.4); BILIRUBIN,TOTAL 0.3 MG/DL (0.3-1.2); BLOOD UREA NITROGEN 26 MG/DL (9-23); CALCIUM LEVEL 8.8 MG/DL (8.3-10.6); CARBON DIOXIDE LEVEL 30 MMOL/L (20-31); CHLORIDE LEVEL 106 MMOL/L (98-107); CK-MB VALUE MASS < 1.0 NG/ML (<3.6); CREATININE FOR GFR 1.12 MG/DL (0.55-1.30); FREE T4 1.18 NG/DL (0.89-1.76); GLOMERULAR FILTRATION RATE 50.2 (>39); GLUCOSE, FASTING 96 MG/DL (74-106); MAGNESIUM LEVEL 1.8 MG/DL (1.8-2.4); MB/CK RELATIVE INDEX 1.88 (< OR =4); SODIUM LEVEL 144 MMOL/L (136-145); THYROID STIMULATING HORMONE 0.674 uIU/ML (0.55-4.78); TOTAL PROTEIN 6.6 G/DL (5.7-8.2)
[2024-07-22 17:15] VITALS: BP 168/74; TEMP 97.9; O2SAT 94
[2024-07-22 17:20] LABS: CK-MB VALUE MASS < 1.0 NG/ML (<3.6)
[2024-07-22 17:22] LABS: CPK CREATINE PHOSPHOKINASE 69 U/L (34-145); MB/CK RELATIVE INDEX 1.44 (< OR =4)
== END 2024-07-22 18:27 | disposition home or self-care (01) ==
LOC: M ED 14:29
DX: R00.2 Palpitations (principal); I10 Essential (primary) hypertension; F41.9 Anxiety disorder, unspecified; F32.A Depression, unspecified; Z86.73 Personal history of transient ischemic attack (TIA), and cerebral infarction without residual deficits; Z88.5 Allergy status to narcotic agent; Z79.899 Other long term (current) drug therapy; Z79.810 Long term (current) use of selective estrogen receptor modulators (SERMs)

== ENCOUNTER → 2024-07-24 | Outpatient (CLI) | payer MEDICARE, MEDICAID | LOC: M WHC 12:38 | PROVIDERS: ATTEND Internal Medicine | DX: Z12.31 Encounter for screening mammogram for malignant neoplasm of breast (principal) ==

== ENCOUNTER → 2024-12-21 | Outpatient (CLI) | payer MEDICARE, MEDICAID ==
[~2024-12-21] MED LIST changes: +LISI40TA10 PO; -LISI40TA4 PO
== END ==
LOC: M WHC 13:01
PROVIDERS: ATTEND Internal Medicine
DX: R92.2 Inconclusive mammogram (principal); N63.20 Unspecified lump in the left breast, unspecified quadrant; R92.333 Mammographic heterogeneous density, bilateral breasts

== ENCOUNTER → 2025-03-05 | Outpatient (CLI) | payer MEDICARE, MEDICAID ==
[~2025-03-05] MED LIST changes: -RA T500C2 PO; +TURM500C10 PO
== END ==
LOC: M RAD 16:47
PROVIDERS: ATTEND Internal Medicine
DX: J98.4 Other disorders of lung (principal); F17.210 Nicotine dependence, cigarettes, uncomplicated

== ENCOUNTER → 2025-04-29 | Outpatient (CLI) | payer MEDICARE, MEDICAID ==
[2025-04-29 17:22] LABS: BASO # 0.1 10^3/uL (0.0-0.2); BASO % 0.7 % (0.0-1.0); EOS # 0.3 10^3/uL (0.0-0.5); EOS % 3.0 % (0.0-3.0); LYMPH # 3.0 10^3/uL (1.5-5.0); LYMPH % 33.9 % (24.0-44.0); MONO # 0.9 10^3/uL (0.0-0.8); MONO % 9.6 % (2.0-8.0); NEUTROPHILS # 4.7 10^3/uL (1.5-8.5); NEUTROPHILS % 52.6 % (36.0-66.0); PLATELET COUNT, AUTOMATED 275 10^3/uL (150-450)
== END ==
LOC: M LAB 16:13
DX: M31.6 Other giant cell arteritis (principal)